=== PATIENT | female | born 1950 | race Caucasian/White ===

== ENCOUNTER → 2018-06-14 10:50 | Outpatient (CLI) | payer MEDICARE, OTHER, SELFPAY ==
--- NOTE | 2018-06-14 12:07 | NM_ITS ---
SPECT MYOCARDIAL PERFUSION SCAN, REST AND STRESS: EXERCISE STRESS: [facility] REVIEW QGS EF AND WALL MOTION EVALUATION: QPS - PERFUSION EVALUATION: HISTORY: SOB, HTN, CAD, Hx of [place], Family history PROCEDURE: Rest imaging performed after administration of10.66 millicuries Tc MIBI. Dose administered at11:35 a.m., with imaging thereafter. Stress imaging was then performed following7 minutes 11 seconds of exercise stress. The patient achieved a heart [id number] with projected heart rate of130 . Resting BP159/96 with stress 164/85. At maximum exercise stress,31.7 millicuries Tc MIBI administered at1:15 p.m. with [id number] minutes thereafter. FINDINGS: Perfusion Evaluation: The single slice spect images as well as the [facility] bull's-eye data summary were reviewed. Wall Motion and Ejection Fraction Evaluation: Gated SPECT review and analysis used to evaluate these features. There is a 65 % left ventricular ejection fraction. There seems to be good wall motion Stress images reveal decreased activity in the apical wall. Rest images reveal persistent decrease in the apex with mildly decreased activity in the anterior wall. Gated images calculated ejection fraction 60% with normal wall motion IMPRESSION: Apical defect with both stress and rest suggesting previous myocardial infarction that region however there is reverse redistribution in the anterior wall suggesting significant ischemia. Normal wall motion. High risk abnormal stress test
--- NOTE | 2018-06-14 12:26 | HMH.ITSHM ---
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 []CARVEDILOL ASA LISINOPRIL EZETIMIBE PANTOPRAZOLE CLOPIDOGREL PRAVASTATIN
== END ==
PROVIDERS: PCP Family Medicine; Visit Provider Internal Medicine Cardiovascular Disease
DX: E78.5 Hyperlipidemia, unspecified (principal); I10 Essential (primary) hypertension; I25.10 Atherosclerotic heart disease of native coronary artery without angina pectoris; I25.2 Old myocardial infarction; R06.09 Other forms of dyspnea; R06.00 Dyspnea, unspecified
CPT/HCPCS: 78452; 93017; 93306; A9502

== ENCOUNTER 2020-01-19 10:42 | Emergency (ER) | payer OTHER, SELFPAY ==
[2020-01-19 10:43] VITALS: BP 181/101; PULSE 82; RESP 20; O2SAT 97; BMI 29.7
[2020-01-19 10:56] VITALS: BP 181/101; PULSE 82; RESP 20; O2SAT 97; BMI 29.8
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
[2020-01-19 12:14] VITALS: BP 172/91; PULSE 82; RESP 19; TEMP 36.7; O2SAT 99
== END 2020-01-19 12:14 | disposition home or self-care (01) ==
PROVIDERS: Emergency Provider Nurse Practitioner; PCP Family Medicine
DX: M54.41 Lumbago with sciatica, right side (principal); V43.02XA Car driver injured in collision with other type car in nontraffic accident, initial encounter; Y92.414 Local residential or business street as the place of occurrence of the external cause; Y99.8 Other external cause status
CPT/HCPCS: 72100; 73502; 99201

== ENCOUNTER → 2020-02-06 11:13 | Outpatient (CLI) | payer OTHER, SELFPAY ==
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
== END ==
PROVIDERS: PCP Family Medicine; Visit Provider Family Medicine
DX: M54.5 Low back pain (principal); S32.040A Wedge compression fracture of fourth lumbar vertebra, initial encounter for closed fracture
CPT/HCPCS: 72110

== ENCOUNTER 2020-02-29 11:00 | Outpatient (RCR) | payer OTHER, SELFPAY | END 2020-02-29 11:05 | disposition home or self-care (01) | LOC: PT 11:00 | PROVIDERS: Visit Provider Family Medicine | DX: M53.82 Other specified dorsopathies, cervical region; M54.5 Low back pain; M62.830 Muscle spasm of back | CPT/HCPCS: 97010; 97014; 97035; 97110; 97163; G0283 ==

== ENCOUNTER → 2020-03-24 11:11 | Outpatient (CLI) | payer MEDICARE, OTHER, SELFPAY ==
[2020-03-24 12:21] LABS: Coronavirus 19 IgG Antibody Negative (Negative); Coronavirus 19 IgM Antibody Negative (Negative)
== END ==
PROVIDERS: Visit Provider Internal Medicine Gastroenterology
DX: Z01.812 Encounter for preprocedural laboratory examination (principal); Z20.822 Contact with and (suspected) exposure to COVID-19; Z12.11 Encounter for screening for malignant neoplasm of colon
CPT/HCPCS: 36415; 86328

== ENCOUNTER 2020-03-26 08:50 | Day surgery (SDC) | payer MEDICARE, OTHER, SELFPAY ==
[2020-03-20 11:16] VITALS: BMI 30.7
[2020-03-26] VITALS (7 sets, daily range): BP systolic 95–190; BP diastolic 64–103; PULSE 67–79; RESP 16–18; TEMP 36.1–36.7; O2SAT 92–97
--- NOTE | 2020-03-26 09:27 | P.PN_ITS ---
[facility] Anesthesia Checklist - Patient Identification Patient Identification: Arm Band - Structural Data Admitted From: Home Planned Operative Procedure/s: colonoscopy Consent for Planned Operative Procedure(s) Verified: Yes Verified Documents: Surgical Consent, History and Physical - NPO Status Verified Time NPO: 00:00 - Additional verifications Anesthesia Reactions: No - Airway Assessment C-Spine Mobility Assessed: Yes (mp2) TMJ Mobility Assessed: Yes Dentition: Good Dentition - Neurological Assessment Level of Consciousness: Awake, Alert - Anesthesia Plan Anesthesia Risk discussed: Yes Anesthesia Plan: Verified ASA Class: III Anesthesia Type: MAC [facility] History I have reviewed the patient's past medical history: Yes Medical History: Reports:: Coronary Artery Disease, Hyperlipidemia, Hypertension, Myocardial Infarction Denies:: Cancer, Diabetes Mellitus Type 1, Diabetes Mellitus Type 2, MRSA, Seizures *Have you ever received a pneumonia vaccine?: No *Have you received a flu vaccine this season?: No Anesthesia experience/problems:: nac Laterality Cases: Bilateral: Total Knee Replacement Other Surgeries: Yes: Cardiac Catheterization, Coronary Stent, Hysterectomy- Total Amputation: No Fractures: No - *Social History Last grade of school completed: Some college Smoking Status: Never smoker Alcohol Intake: current Alcohol Intake Frequency:: holidays/special occasions only Substance Use Type: denies use *Occupational Status:: employed *Travel in the last 8 weeks: None Family Hx:: Coronary Artery Disease, Heart Attack
--- NOTE | 2020-03-26 09:50 | P.PCN_ITS ---
[facility] Procedure Note Procedure Note:: Colonoscopy Procedure Report: Colonoscopy Endoscopist: Oliver Ramos II, MD Referring physician: Jairo Lam MD Date of Procedure: March 26, 2020 Equipment: Olympus 180 variable stiffness pediatric colonoscope Sedation: MAC sedation Indication: Mrs. Bliss is a 70-year-old female who is here for high risk screening/surveillance colonoscopy. She does have a strong family history and states that both her brother and sister had colon cancer in their 60s. The patient does have some occasional hemorrhoidal bleeding/prolapse. She reports no abdominal pain, weight loss or change in bowel habits. She does state that her last colonoscopy was approximately 10 years ago and she may have had some polyps removed. Procedure: Prior to the procedure, a history and physical exam was performed, and patient's medications and allergies were reviewed. The risks, benefits and alternatives of the sedation and procedure were discussed with the patient. All questions were answered and informed consent was obtained. The patient was brought to the procedure room. Patient identification and proposed procedure were verified by the physician and the nurse. The patient was placed in a left lateral decubitus position and the scope was passed under direct vision. Throughout the procedure, the patient's blood pressure, pulse, and oxygen saturations were monitored continuously. The colonoscopy was accomplished without difficulty. The patient tolerated the procedure well. Findings: On digital rectal examination there was normal rectal tone. There were no external hemorrhoids. The colonoscope was introduced through the anal canal to the rectum and advanced to the cecum. The ileocecal valve and appendiceal orifice were identified. The scope was advanced a short distance into the ileum which appeared grossly normal. The scope was then withdrawn into the colon. The cecum, ascending, transverse, descending, sigmoid and rectum were grossly normal. There were no mucosal abnormalities identified. Upon retroflexion within the rectum there were grade 1-2 internal hemorrhoids.The preparation was excellent throughout with [place] Preparation Score of 9. The cecal time was 10 minutes. Impression: 1. Normal colonoscopy with intubation of the terminal ileum 2. Grade 1-2 internal hemorrhoids Plan: Based upon the patient's strong family history, I would recommend repeat high risk screening/surveillance colonoscopy again in 5 years. I would encourage fiber supplementation on a long-term daily maintenance basis.
== END 2020-03-26 10:30 | disposition home or self-care (01) ==
LOC: OUTP 08:52
PROVIDERS: PCP Family Medicine; Visit Provider Internal Medicine Gastroenterology
PROC: 0DJD8ZZ Inspection of Lower Intestinal Tract, Via Natural or Artificial Opening Endoscopic (ICD-10-PCS; CPT 45378; principal; 2020-03-26 10:00)
DX: Z12.11 Encounter for screening for malignant neoplasm of colon (principal); Z80.0 Family history of malignant neoplasm of digestive organs; Z86.010 Personal history of colon polyps; K64.1 Second degree hemorrhoids; I25.10 Atherosclerotic heart disease of native coronary artery without angina pectoris; E78.5 Hyperlipidemia, unspecified; I10 Essential (primary) hypertension; I25.2 Old myocardial infarction; Z83.3 Family history of diabetes mellitus; Z88.2 Allergy status to sulfonamides; Z79.82 Long term (current) use of aspirin; Z79.899 Other long term (current) drug therapy
CPT/HCPCS: G0105

== ENCOUNTER → 2020-09-20 14:33 | Outpatient (CLI) | payer MEDICARE, OTHER, SELFPAY ==
[2020-09-20 15:39] LABS: Cholesterol 165 mg/dl (140-200); HDL Cholesterol 55 mg/dl (40-60); Triglycerides 124 mg/dl (30-150); VLDL Cholesterol 25 mg/dL (0-40)
[2020-09-20 15:50] LABS: Direct LDL Cholesterol 88.74 mg/dL (100-129)
== END ==
PROVIDERS: Visit Provider Internal Medicine Cardiovascular Disease
DX: E78.2 Mixed hyperlipidemia (principal); I10 Essential (primary) hypertension; I25.10 Atherosclerotic heart disease of native coronary artery without angina pectoris; I25.2 Old myocardial infarction
CPT/HCPCS: 36415; 80061

== ENCOUNTER 2025-02-02 14:18 | Outpatient (CLI) | payer MEDICARE, OTHER, SELFPAY ==
[2025-02-02 14:53] LABS: Hematocrit 43.5 % (37.0-47.0); Hemoglobin 14.1 g/dL (12.2-16.2); Immature Granulocytes % 0.3 %; Mean Corpuscular HGB Conc 32.4 g/dL (31.8-35.4); Mean Corpuscular Hemoglobin 28.8 pg (27.0-31.2); Mean Corpuscular Volume 88.8 fl (81-99); Nucleated Red Blood Cells % 0 %; Platelet Count 204 K/mm3 (142-424); Red Blood Count 4.90 M/mm3 (4.20-5.40); Red Cell Distribution Width-SD 42.5 fL; White Blood Count 7.0 K/mm3 (4.8-10.8)
[2025-02-02 15:39] LABS: Alanine Aminotransferase 24 U/L (12-78); Albumin Level 4.4 g/dl (3.5-5.0); Alkaline Phosphatase 83 U/L (38-126); Anion Gap 9.2 mEq/L (5-15); Aspartate Amino Transferase 28 U/L (14-36); Bilirubin,Direct 0.2 mg/dl (0.0-0.4); Bilirubin,Indirect 0.5 mg/dL (0.0-0.9); Bilirubin,Total 0.7 mg/dl (0.2-1.3); Bilirubin,Unconjugated 0.4 mg/dL (0.0-1.1); Blood Urea Nitrogen 12 mg/dl (7-17); Calcium 9.6 mg/dl (8.4-10.2); Carbon Dioxide 28 mmol/L (22.0-30.0); Chloride 100 mmol/L (98-107); Cholesterol 157 mg/dl (140-200); Creatinine,Serum 0.60 mg/dl (0.52-1.04); Estimated Glomerular Filt Rate 98 ml/min (>60); GFR (African American) 119 ML/MIN (>60); Glucose 90 mg/dl (74-100); HDL Cholesterol 52 mg/dl (40-60); Potassium 4.2 mmoL/L (3.5-5.1); Sodium 133 mmol/L (136-145); Total Protein,Serum 7.0 g/dl (6.3-8.2); Triglycerides 121 mg/dl (30-150)
== END 2025-02-02 23:59 | disposition home or self-care (01) ==
LOC: LAB 14:19
PROVIDERS: PCP Family Medicine; Visit Provider Nurse Practitioner
DX: I11.9 Hypertensive heart disease without heart failure (principal); E78.2 Mixed hyperlipidemia; I25.10 Atherosclerotic heart disease of native coronary artery without angina pectoris
CPT/HCPCS: 36415; 80048; 80061; 80076; 85025